=== PATIENT | female | born 1950 | race Caucasian/White ===

== ENCOUNTER 2022-02-10 10:51 | Emergency (ER) | payer MEDICARE, BC ==
[2022-02-10] MEDS ORDERED: Iopamidol 250 51% 100 ML VIAL FS ONE (10:52)
[2022-02-10] MEDS ORDERED: Iopamidol 370 76% 100 ML VIAL FS ONE (10:52)
[2022-02-10 11:45] LABS: ALT (SGPT) 19 U/L (8-55); AST (SGOT) 30 U/L (5-34); Albumin 3.5 g/dL (3.4-4.8); Alkaline Phosphatase 97 U/L (40-110); Anion Gap 14 mmol/L (10-20); BUN (Urea Nitrogen) 25 mg/dL (9.8-20.1); Bilirubin, Total 0.7 mg/dL (0.2-1.2); Calc. Creatinine Clearance 0 mL/min (70-130); Calcium 8.6 mg/dL (7.8-10.44); Carbon Dioxide 20 mmol/L (23-31); Chloride 103 mmol/L (98-107); Estimated GFR 60; Globulin 3.4 g/dL (2.4-3.5); Glucose 129 mg/dL (83-110); Potassium 4.3 mmol/L (3.5-5.1); Protein, Total 6.9 g/dL (5.8-8.1); Sodium 133 mmol/L (136-145)
[2022-02-10 11:54] LABS: #Eosinphils 0.2 thou/uL (0.0-0.7); #Lymphocytes 0.5 thou/uL (1.20-3.40); #Monocytes 0.1 thou/uL (0.11-0.59); #Neutrophils 4.6 thou/uL (1.40-6.50); %Basophils 0.1 % (0.0-1.0); %Lymphocytes 8.9 % (21.0-51.0); %Monocytes 1.5 % (0.0-10.0); %Neutrophils 85.5 % (42.0-75.0); Hemoglobin 10.7 g/dL (12.0-16.0); Mean Corpuscular HGB CONC 31.6 g/dL (32.0-36.0); Mean Corpuscular Hemoglobin 27.5 pg (27.0-31.0); Mean Corpuscular Volume 87.1 fL (78.0-98.0); Mean Platelet Volume 7.5 fL (7.4-10.4); Platelet Count 58 thou/uL (130-400); RBC Distribution Width 13.4 % (11.5-14.5); Red Blood Cell (RBC) Count 3.88 mill/uL (4.20-5.40); White Blood Cell (WBC) Count 5.4 thou/uL (4.8-10.8)
[2022-02-10 12:03] LABS: CKMB 0.9 ng/mL (0-6.6)
[2022-02-10] MEDS ORDERED: Aspirin Chewable 81 MG TAB ONE ×2 (12:03)
[2022-02-10 12:05] LABS: Manual Diff?? NO
[2022-02-10 12:06] LABS: MDiff Complete? YES
[2022-02-10 13:20] LABS: Bilirubin Negative (Negative); Blood, Urine Negative (Negative); Clarity Clear (Clear); Glucose, Urine (Dipstick) Negative (Negative); Ketone, Urine Negative (Negative); Leukocyte Trace (Negative); Nitrite Negative (Negative); Protein, Urine (Dipstick) 30 mg/dL (Neg-Trace); Urobilinogen 0.2 mg/dL (Less than 2); pH, Urine 5.5 (5.0-9.0)
[2022-02-10 13:37] LABS: Bacteria/HPF None Seen HPF (None Seen); RBC/HPF None Seen HPF (0-3); Squamous Epithelial None Seen HPF (0-3); WBC/HPF 0-3 HPF (0-3)
== END 2022-02-10 13:50 | disposition short-term general hospital (02) ==
LOC: BURERS 10:51
DX: R53.1 Weakness (principal); I31.39 Other pericardial effusion (noninflammatory); I26.99 Other pulmonary embolism without acute cor pulmonale; I10 Essential (primary) hypertension; Z85.3 Personal history of malignant neoplasm of breast; Z85.118 Personal history of other malignant neoplasm of bronchus and lung; Z79.899 Other long term (current) drug therapy
CPT/HCPCS: 71045; 71275; 80053; 81003; 81015; 82553; 83605; 83880; 84484; 85025; 93005; Q9967